=== PATIENT | male | born 1940 | race American Indian/Alaskan Native ===

== ENCOUNTER 2021-10-01 19:38 | Inpatient (IN) | payer OTHER, MEDICARE ==
[2021-10-01] MEDS ORDERED: SODIUM CHLORIDE 0.9% 500 ML 500 ML IV ONE (20:06)
--- NOTE | 2021-10-01 20:11 | Emergency Department Report ---
HPI - General Time Seen by Provider: 10/01/21 19:59 - HPI HPI: This is an 80-year-old -[place] male presents to the emergency department via EMS from [facility] with a complaint of shortness of breath and altered mental status. The patient has a history of nonischemic cardiomyopathy, dementia, BPH. He just was admitted to [facility] after discharge from another hospital. We do have the paperwork from this other hospital that shows he was recently admitted for syncopal episodes, elevated troponin level, small bowel obstruction, nonischemic cardiomyopathy. Apparently, just prior to presentation, staff at [facility] found him laying supine in bed and he appeared to be in some type of respiratory distress. EMS arrived and placed him on a nonrebreather, sat him upright, and he had some improvement. At the time of my examination the patient is nonverbal and is laying with his eyes closed but does respond to painful stimuli. ED Past Medical Hx - Past Medical History Hx Hypertension: Yes Hx Congestive Heart Failure: Yes Hx Arthritis: Yes Hx Dementia: Yes Hx HIV: No Additional medical history: PROSTRATE CANCER, dementia - Surgical History Additional Surgical History: colon resection. surgery for prostate cancer - Social History Smoking Status: Former Smoker - Medications Home Medications: Home Medications Medication Instructions Recorded Confirmed Last Taken Type Aspirin EC [Halfprin EC] 81 mg PO QDAY #30 tablet 11/07/20 Unknown Rx Furosemide [Lasix TAB] 40 mg PO QDAY #30 tablet 11/07/20 Unknown Rx Spironolactone [Aldactone] 25 mg PO QDAY #30 tablet 11/07/20 Unknown Rx carvediloL [Coreg] 6.25 mg PO BID #60 tablet 11/07/20 Unknown Rx lisinopriL [Zestril TAB] 5 mg PO DAILY #30 11/07/20 Unknown Rx Tamsulosin [Flomax] 0.4 mg PO QDAY #30 cap 11/08/20 Unknown Rx ED Review of Systems ROS: Stated complaint: AMS Other details as noted in HPI Comment: Unobtainable due to pts medical conditions Physical Exam - Physical Exam Physical Exam: GENERAL: The patient is well-developed well-nourished. HENT: Normocephalic. Atraumatic. Patient has moist mucous membranes. EYES: Pupils equal reactive to light bilaterally. NECK: Supple. Trachea is midline. CHEST/LUNGS: Coarse breath sounds bilateral. There is some tachypnea. HEART/CARDIOVASCULAR: Regular. There is no tachycardia. There is no murmur. ABDOMEN: Abdomen is soft, nontender. Patient has normal bowel sounds. SKIN: Skin is warm and dry. NEURO: The patient is very sleepy but is arousable. Nonverbal. Not following commands. MUSCULOSKELETAL: There is no tenderness or deformity. - Central Line Placement Right Femoral Consent Obtained: emergent situation Time Out Performed: Yes Patient Placed on Monitor/Pulse Ox: Yes MD Prep: mask, gown, gloves Central Line Prep: Chlorhexidine scrub Local Anesthesia Used: Lidocaine 1% Amount of Anesthesia Used (mls): 3 Ultrasound Used for Placement: Yes Central Line Lumen Inserted: triple Reason for Insertion: Volume Resuscitation Bloods Obtained for Lab: No Central Line Position: good blood return, all ports aspirated, flus, sutured in place with nyl Dressing Applied: Tegaderm, sterile gauze/tape Patient Tolerated Procedure: well Complications: none ED Medical Decision Making - Lab Data Result diagrams: 10/01/21 20:16 10/01/21 20:16 Lab Results 10/01/21 10/01/21 10/01/21 Range/Units 20:16 20:16 20:16 WBC 3.6 L (4.5-11.0) K/mm3 RBC 3.43 L (3.65-5.03) M/mm3 Hgb 9.8 L (11.8-15.2) gm/dl Hct 31.0 L (35.5-45.6) % MCV 91 (84-94) fl MCH 29 (28-32) pg MCHC 32 (32-34) % RDW 15.5 H (13.2-15.2) % Plt Count 238 (140-440) K/mm3 Lymph % (Auto) 8.2 L (13.4-35.0) % [place] % (Auto) 6.7 (0.0-7.3) % Eos % (Auto) 1.0 (0.0-4.3) % Baso % (Auto) 0.3 (0.0-1.8) % Lymph # (Auto) 0.3 L (1.2-5.4) K/mm3 [place] # (Auto) 0.2 (0.0-0.8) K/mm3 Eos # (Auto) 0.0 (0.0-0.4) K/mm3 Baso # (Auto) 0.0 (0.0-0.1) K/mm3 Seg Neutrophils % 83.8 H (40.0-70.0) % Seg Neutrophils # 3.0 (1.8-7.7) K/mm3 PT 15.0 H (12.2-14.9) Sec. INR 1.06 (0.87-1.13) Sodium (137-145) mmol/L Potassium (3.6-5.0) mmol/L Chloride (98-107) mmol/L Carbon Dioxide (22-30) mmol/L Anion Gap mmol/L BUN (9-20) mg/dL Creatinine (0.8-1.3) mg/dL Estimated GFR ml/min BUN/Creatinine Ratio % Glucose (75-100) mg/dL Lactic Acid 1.40 (0.7-2.0) mmol/L Calcium (8.4-10.2) mg/dL Total Bilirubin (0.1-1.2) mg/dL AST (5-40) units/L ALT (7-56) units/L Alkaline Phosphatase (35-129) units/L Ammonia (25-60) umol/L Troponin T (0.00-0.029) ng/mL NT-Pro-B Natriuret Pep (0-900) pg/mL Total Protein (6.3-8.2) g/dL Albumin (3.9-5) g/dL Albumin/Globulin Ratio % Triglycerides (2-149) mg/dL Cholesterol (50-199) mg/dL LDL Cholesterol Direct (50-130) mg/dL HDL Cholesterol (40-59) mg/dL Cholesterol/HDL Ratio % TSH (0.270-4.200) mlU/mL Plasma/Serum Alcohol (0-0.07) % 10/01/21 10/01/21 10/01/21 Range/Units 20:16 20:16 20:16 WBC (4.5-11.0) K/mm3 RBC (3.65-5.03) M/mm3 Hgb (11.8-15.2) gm/dl Hct (35.5-45.6) % MCV (84-94) fl MCH (28-32) pg MCHC (32-34) % RDW (13.2-15.2) % Plt Count (140-440) K/mm3 Lymph % (Auto) (13.4-35.0) % [place] % (Auto) (0.0-7.3) % Eos % (Auto) (0.0-4.3) % Baso % (Auto) (0.0-1.8) % Lymph # (Auto) (1.2-5.4) K/mm3 [place] # (Auto) (0.0-0.8) K/mm3 Eos # (Auto) (0.0-0.4) K/mm3 Baso # (Auto) (0.0-0.1) K/mm3 Seg Neutrophils % (40.0-70.0) % Seg Neutrophils # (1.8-7.7) K/mm3 PT (12.2-14.9) Sec. INR (0.87-1.13) Sodium 145 (137-145) mmol/L Potassium 4.3 (3.6-5.0) mmol/L Chloride 109.8 H (98-107) mmol/L Carbon Dioxide 26 (22-30) mmol/L Anion Gap 14 mmol/L BUN 24 H (9-20) mg/dL Creatinine 0.8 (0.8-1.3) mg/dL Estimated GFR > 60 ml/min BUN/Creatinine Ratio 30 % Glucose 123 H (75-100) mg/dL Lactic Acid (0.7-2.0) mmol/L Calcium 8.6 (8.4-10.2) mg/dL Total Bilirubin 0.50 (0.1-1.2) mg/dL AST 48 H (5-40) units/L ALT 74 H (7-56) units/L Alkaline Phosphatase 167 H (35-129) units/L Ammonia 28.0 (25-60) umol/L Troponin T 0.049 H (0.00-0.029) ng/mL NT-Pro-B Natriuret Pep (0-900) pg/mL Total Protein 6.1 L (6.3-8.2) g/dL Albumin 2.5 L (3.9-5) g/dL Albumin/Globulin Ratio 0.7 % Triglycerides 49 (2-149) mg/dL Cholesterol 91 (50-199) mg/dL LDL Cholesterol Direct 40 L (50-130) mg/dL HDL Cholesterol 37 L (40-59) mg/dL Cholesterol/HDL Ratio 2.45 % TSH 3.780 (0.270-4.200) mlU/mL Plasma/Serum Alcohol (0-0.07) % 10/01/21 10/01/21 Range/Units 20:16 21:03 WBC (4.5-11.0) K/mm3 RBC (3.65-5.03) M/mm3 Hgb (11.8-15.2) gm/dl Hct (35.5-45.6) % MCV (84-94) fl MCH (28-32) pg MCHC (32-34) % RDW (13.2-15.2) % Plt Count (140-440) K/mm3 Lymph % (Auto) (13.4-35.0) % [place] % (Auto) (0.0-7.3) % Eos % (Auto) (0.0-4.3) % Baso % (Auto) (0.0-1.8) % Lymph # (Auto) (1.2-5.4) K/mm3 [place] # (Auto) (0.0-0.8) K/mm3 Eos # (Auto) (0.0-0.4) K/mm3 Baso # (Auto) (0.0-0.1) K/mm3 Seg Neutrophils % (40.0-70.0) % Seg Neutrophils # (1.8-7.7) K/mm3 PT (12.2-14.9) Sec. INR (0.87-1.13) Sodium (137-145) mmol/L Potassium (3.6-5.0) mmol/L Chloride (98-107) mmol/L Carbon Dioxide (22-30) mmol/L Anion Gap mmol/L BUN (9-20) mg/dL Creatinine (0.8-1.3) mg/dL Estimated GFR ml/min BUN/Creatinine Ratio % Glucose (75-100) mg/dL Lactic Acid (0.7-2.0) mmol/L Calcium (8.4-10.2) mg/dL Total Bilirubin (0.1-1.2) mg/dL AST (5-40) units/L ALT (7-56) units/L Alkaline Phosphatase (35-129) units/L Ammonia (25-60) umol/L Troponin T (0.00-0.029) ng/mL NT-Pro-B Natriuret Pep 3878 H (0-900) pg/mL Total Protein (6.3-8.2) g/dL Albumin (3.9-5) g/dL Albumin/Globulin Ratio % Triglycerides (2-149) mg/dL Cholesterol (50-199) mg/dL LDL Cholesterol Direct (50-130) mg/dL HDL Cholesterol (40-59) mg/dL Cholesterol/HDL Ratio % TSH (0.270-4.200) mlU/mL Plasma/Serum Alcohol < 0.01 (0-0.07) % - EKG Data 10/02/21 01:07 The EKG done at 0059 shows too much artifact. It says that the patient has atrial fibrillation but this does not appear consistent with what is seen on the cardiac monitoring. However it does appear to be enough to show that the patient does not have morphology consistent with ST elevation myocardial infarction. - Radiology Data Radiology results: report reviewed CHEST 1 VIEW 10/01/2021 8:10 PM INDICATION / CLINICAL INFORMATION: Altered mental status. COMPARISON: 11/05/2020 FINDINGS: SUPPORT DEVICES: None. HEART / MEDIASTINUM: No significant abnormality. LUNGS / PLEURA: Right costophrenic angles are not completely included. Diffuse opacity in the right hilum and right mid and lower lung. No pneumothorax. ADDITIONAL FINDINGS: No significant additional findings. IMPRESSION: 1. Diffuse right pulmonary opacity. Limited examination of the costophrenic angle. Right effusion CT head/brain wo con INDICATION / CLINICAL INFORMATION: 80 years Male; Altered mental status. TECHNIQUE: Routine CT head without contrast. All CT scans at this location are performed using CT dose reduction for ALARA by means of automated exposure control. COMPARISON: None. FINDINGS: BRAIN / INTRACRANIAL CONTENTS: No acute hemorrhage, mass effect, midline shift, hydrocephalus, or acute, large territorial infarct. Mild to moderate, diffuse cerebral atrophy. Moderate to marked degree of hippocampal atrophy suggested bilaterally. There are moderate, somewhat confluent areas of decreased attenuation in the white matter of the cerebral hemispheres, as well as the gangliocapsular regions. These are nonspecific findings and may be related to microangiopathy (hypertension, diabetes, atherosclerosis), given the patient's age. It might be difficult to evaluate for small areas of ischemia without diffusion imaging by MRI. Mild pontine disease suspected. CRANIOCERVICAL JUNCTION: No significant abnormality. ORBITS: No significant abnormality of visualized orbits. SINUSES / MASTOIDS: Small mucous retention cysts seen in both maxillary antra. ADDITIONAL FINDINGS: No significant atherosclerotic disease appreciated. IMPRESSION: 1. No focal m ass, hemorrhage, hydrocephalus, or acute, large territorial infarct. - Medical Decision Making This patient presents to the emergency department from [facility] after he was admitted there yesterday and appeared to be acutely declining and having some signs of respiratory distress. On examination the patient has some tachypnea, coarse breath sounds and was placed on a nonrebreather. He has a history of dementia but initially the patient is somewhat somnolent. He is arousable but remains nonverbal and not following commands. Throughout his ED course he has become more awake, but continues to be confused and nonverbal. We have been able to titrate down the supplemental oxygen from a nonrebreather to a Venturi mask and now to 4 L oxygen via nasal cannula. Chest x-ray shows right-sided opacities concerning for pneumonia versus volume overload. CT of the head without contrast does not show any hemorrhage, large vessel occlusion, or any other acute process. Overall patient appears consistent with CHF as there is a right-sided effusion, elevated proBNP of greater than 3000 without renal insufficiency. However, given the patient's blood pressure, I have been unable to give him Lasix to start diuresis. The patient has been started on some empiric antibiotics as the right-sided opacity could also represent pneumonia. Patient's labs shows some anemia with hemoglobin of 9.8, mild transaminitis, mild elevation in the troponin level, and BNP of 3800. The patient began having hypotension and was seen with a systolic of about 60. He already received 500 cc of IV fluid, and I do not want to give him any more fluid if I do not have to as he is exhibiting signs of volume overload. Therefore, a central venous catheter was placed as per the procedure section and the patient was started on Levophed. He will be admitted to the ICU and was accepted for admission by the hospitalist, Dr. Sterling. Critical Care Time: Yes Critical care time in (mins) excluding proc time.: 35 Critical care attestation.: If time is entered above; I have spent that time in minutes in the direct care of this critically ill patient, excluding procedure time. Critical care time spent on this patient in doing his initial evaluation, multiple reevaluations, ordering and interpretation of labs and imaging, IV antibiotics, management of pressors for hypotension, discussion with the hospitalist service. This does not include the separately billable procedure of central venous catheter placement. Critical Care Time: 35 minutes ED Disposition Clinical Impression: Respiratory distress, Elevated troponin CHF exacerbation Qualifiers: Heart failure type: unspecified Qualified Code(s): I50.9 - Heart failure, unspecified Hypotension Qualifiers: Hypotension type: unspecified hypotension type Qualified Code(s): I95.9 - Hypotension, unspecified Disposition: 09 ADMITTED INPATIENT Is pt being admited?: Yes Condition: Serious Time of Disposition: 01:14
--- NOTE | 2021-10-01 20:35 | XRay Report ---
CHEST 1 VIEW 10/01/2021 8:10 PM INDICATION / CLINICAL INFORMATION: Altered mental status. COMPARISON: 11/05/2020 FINDINGS: SUPPORT DEVICES: None. HEART / MEDIASTINUM: No significant abnormality. LUNGS / PLEURA: Right costophrenic angles are not completely included. Diffuse opacity in the right h ilum and right mid and lower lung. No pneumothorax. ADDITIONAL FINDINGS: No significant additional findings. IMPRESSION: 1. Diffuse right pulmonary opacity. Limited examination of the costophrenic angle. Right effusion Signer Name: Aris Angel MD Signed: 10/01/2021 8:31 PM Workstation Name: [id number]
[2021-10-01 20:44] LABS: Basophils % (Auto) 0.3 % (0.0-1.8); Hemoglobin 9.8 gm/dl (11.8-15.2); Lymphocytes # (Auto) 0.3 K/mm3 (1.2-5.4); Lymphocytes % (Auto) 8.2 % (13.4-35.0); Mean Corpuscular HGB Conc 32 % (32-34); Mean Corpuscular Volume 91 fl (84-94); Monocytes # (Auto) 0.2 K/mm3 (0.0-0.8); Monocytes % (Auto) 6.7 % (0.0-7.3); Platelet Count 238 K/mm3 (140-440); Red Blood Count 3.43 M/mm3 (3.65-5.03); Red Cell Distribution Width 15.5 % (13.2-15.2)
[2021-10-01 20:53] LABS: INR 1.06 (0.87-1.13)
--- NOTE | 2021-10-01 20:56 | Cat Scan Report ---
CT head/brain wo con INDICATION / CLINICAL INFORMATION: 80 years Male; Altered mental status. TECHNIQUE: Routine CT head without contrast. All CT scans at this location are performed using CT dos e reduction for ALARA by means of automated exposure control. COMPARISON: None. FINDINGS: BRAIN / INTRACRANIAL CONTENTS: No acute hemorrhage, mass effect, midline shift, hydrocephalus, or acu te, large territorial infarct. Mild to moderate, diffuse cerebral atrophy. Moderate to marked degree of hippocampal atrophy suggeste d bilaterally. There are moderate, somewhat confluent areas of decreased attenuation in the white matter of the cere bral hemispheres, as well as the gangliocapsular regions. These are nonspecific findings and may be r elated to microangiopathy (hypertension, diabetes, atherosclerosis), given the patient's age. It migh t be difficult to evaluate for small areas of ischemia without diffusion imaging by MRI. Mild pontine disease suspected. CRANIOCERVICAL JUNCTION: No significant abnormality. ORBITS: No significant abnormality of visualized orbits. SINUSES / MASTOIDS: Small mucous retention cysts seen in both maxillary antra. ADDITIONAL FINDINGS: No significant atherosclerotic disease appreciated. IMPRESSION: 1. No focal mass, hemorrhage, hydrocephalus, or acute, large territorial infarct. Signer Name: Dakota Keys MD, III Signed: 10/01/2021 8:52 PM Workstation Name: [id number]
[2021-10-01 21:06] LABS: Alanine Aminotransferase 74 units/L (7-56); Albumin 2.5 g/dL (3.9-5); BUN/Creatinine Ratio 30; Blood Urea Nitrogen 24 mg/dL (9-20); Calcium 8.6 mg/dL (8.4-10.2); Hemolysis Index 11
[2021-10-01 21:38] LABS: Chol/HDL Ratio 2.45 %; HDL Cholesterol 37 mg/dL (40-59); LDL Cholesterol,Direct 40 mg/dL (50-130)
[2021-10-01] MEDS ORDERED: cefTRIAXone/NS 1 GM/50 ML 1 GM/50 ML BAG IV ONE (23:18)
[2021-10-01] MEDS ORDERED: AZITHROMYCIN/NS 500 MG/250 ML 500 MG/250 ML BAG IV ONE (23:18)
[2021-10-01] MEDS ORDERED: LORazepam 2 MG/ML VIAL IV ONE (23:20)
[2021-10-02] MEDS ORDERED: ONDANSETRON 4 MG/2 ML INJ IV PRN (00:35)
[2021-10-02] MEDS ORDERED: ACETAMINOPHEN 325 MG TAB PO PRN (00:35)
[2021-10-02] MEDS ORDERED: MAGNESIUM HYDROXIDE (MOM) ORAL LIQD UDC PO PRN (00:35)
[2021-10-02] MEDS ORDERED: MORPHINE 2 MG/1 ML INJ IV PRN (00:35)
[2021-10-02] MEDS ORDERED: MORPHINE 4 MG/1 ML INJ IV PRN (00:35)
--- NOTE | 2021-10-02 00:49 | History and Physical Report ---
History of Present Illness Date of examination: 10/02/21 Date of admission: 10/02/2021 Chief complaint: Shortness of Breath History of present illness: 80-year-old -[place] male with known history of congestive heart failure, hypertension and dementia brought into the emergency room via EMS [facility] for evaluation of shortness of breath and changes in mental status. According to son who was by the bedside patient had just been discharged from [facility] . Paperwork shows that he was recently admitted for syncopal episode, elevated troponin, small bowel obstruction, nonischemic cardiomyopathy. Patient arrived in the emergency room on nonrebreather and was subsequently placed on BiPAP upon arrival in the emergency room. Work-up in the emergency room today, chest x-ray shows diffuse right pulmonary opacity. CT of the head shows no acute abnormality. Lab is significant for hemoglobin of 9.8 and hematocrit of 31, D-dimer of 1236. BNP of 3878 During the course of patient's stay in the emergency room patient became hypotensive and was subsequently placed on a pressor. Patient commenced on empiric IV antibiotics for pneumonia. Past History Past Medical History: arthritis, heart failure, hypertension, other (Dementia, prostate cancer) Past Surgical History: Other (Colon resection, prostate surgery) Social history: smoking (Former smoker) Family history: no significant family history Medications and Allergies Allergies Allergy/AdvReac Type Severity Reaction Status Date / Time No Known Allergies Allergy Verified 11/02/20 17:56 Home Medications Medication Instructions Recorded Confirmed Last Taken Type Aspirin EC [Halfprin EC] 81 mg PO QDAY #30 tablet 11/07/20 Unknown Rx Furosemide [Lasix TAB] 40 mg PO QDAY #30 tablet 11/07/20 Unknown Rx Spironolactone [Aldactone] 25 mg PO QDAY #30 tablet 11/07/20 Unknown Rx carvediloL [Coreg] 6.25 mg PO BID #60 tablet 11/07/20 Unknown Rx lisinopriL [Zestril TAB] 5 mg PO DAILY #30 11/07/20 Unknown Rx Tamsulosin [Flomax] 0.4 mg PO QDAY #30 cap 11/08/20 Unknown Rx Active Meds: Active Medications Acetaminophen (Acetaminophen 325 Mg Tab) 650 mg PO Q6H PRN PRN Reason: Pain MILD(1-3)/Fever >100.5/ECHEVERRIA NORepinephrine/NS 8 MG-250 ML (Norepinephrine/Ns 8 Mg-250 Ml (Double Conc)) 8 mg in 250 mls @ 3.75 mls/hr IV TITRATE IVETT; Protocol Morphine Sulfate (Morphine 2 Mg/1 Ml Inj) 2 mg IV Q4H PRN PRN Reason: Pain, Moderate (4-6) Morphine Sulfate (Morphine 4 Mg/1 Ml Inj) 4 mg IV Q4H PRN PRN Reason: Pain , Severe (7-10) Sodium Chloride (Sodium Chloride 0.9% 10 Ml Flush Syringe) 10 ml IV BID IVETT Sodium Chloride (Sodium Chloride 0.9% 10 Ml Flush Syringe) 10 ml IV PRN PRN PRN Reason: LINE FLUSH Review of Systems Constitutional: no fever, no chills, no malaise Ears, nose, mouth and throat: no nasal congestion, no sore throat Cardiovascular: no chest pain, no palpitations Respiratory: cough, shortness of breath Gastrointestinal: no abdominal pain, no nausea, no vomiting Genitourinary Male: no dysuria, no hematuria Musculoskeletal: no neck pain, no low back pain Integumentary: no rash, no pruritis Neurological: no headaches, no confusion Psychiatric: no anxiety, no depression Endocrine: no polyphagia, no polydipsia, no polyuria, no nocturia Exam - Constitutional Vitals: Temp Pulse Resp BP Pulse Ox 97.9 F 74 11 L 106/53 99 10/01/21 23:15 10/01/21 23:15 10/01/21 23:15 10/01/21 23:15 10/01/21 23:15 General appearance: Present: mild distress, well-nourished, other (Moderate Pallor) - EENT Eyes: Present: PERRL, EOM intact. Absent: scleral icterus ENT: hearing intact, clear oral mucosa, dentition normal - Neck Neck: Present: supple, normal ROM - Respiratory Respiratory effort: normal Respiratory: bilateral: diminished - Cardiovascular Rhythm: regular Heart Sounds: Present: S1 & S2. Absent: gallop, systolic murmur, diastolic murmur, rub, click - Extremities Extremities: no ischemia, pulses intact, pulses symmetrical, No edema, normal temperature, normal color, Full ROM Peripheral Pulses: within normal limits - Abdominal General gastrointestinal: Present: soft, non-tender, non-distended, normal bowel sounds. Absent: mass - Integumentary Integumentary: Present: clear, warm, dry. Absent: rash - Musculoskeletal Musculoskeletal: strength equal bilaterally - Psychiatric Psychiatric: appropriate mood/affect, intact judgment & insight, no memory intact, cooperative - Neurologic Neurologic: CNII-XII intact, no focal deficits, moves all extremities HEART Score - HEART Score Troponin: Troponin T 0.049 ng/mL (0.00-0.029) H 10/01/21 20:16 Results - Labs CBC & Chem 7: 10/01/21 20:16 10/01/21 20:16 Labs: Abnormal lab results 10/01/21 10/01/21 10/01/21 Range/Units 20:16 20:16 20:16 WBC 3.6 L (4.5-11.0) K/mm3 RBC 3.43 L (3.65-5.03) M/mm3 Hgb 9.8 L (11.8-15.2) gm/dl Hct 31.0 L (35.5-45.6) % RDW 15.5 H (13.2-15.2) % Lymph % (Auto) 8.2 L (13.4-35.0) % Lymph # (Auto) 0.3 L (1.2-5.4) K/mm3 Seg Neutrophils % 83.8 H (40.0-70.0) % PT 15.0 H (12.2-14.9) Sec. Chloride 109.8 H (98-107) mmol/L BUN 24 H (9-20) mg/dL Glucose 123 H (75-100) mg/dL AST 48 H (5-40) units/L ALT 74 H (7-56) units/L Alkaline Phosphatase 167 H (35-129) units/L Troponin T 0.049 H (0.00-0.029) ng/mL NT-Pro-B Natriuret Pep (0-900) pg/mL Total Protein 6.1 L (6.3-8.2) g/dL Albumin 2.5 L (3.9-5) g/dL LDL Cholesterol Direct 40 L (50-130) mg/dL HDL Cholesterol 37 L (40-59) mg/dL 10/01/21 Range/Units 21:03 WBC (4.5-11.0) K/mm3 RBC (3.65-5.03) M/mm3 Hgb (11.8-15.2) gm/dl Hct (35.5-45.6) % RDW (13.2-15.2) % Lymph % (Auto) (13.4-35.0) % Lymph # (Auto) (1.2-5.4) K/mm3 Seg Neutrophils % (40.0-70.0) % PT (12.2-14.9) Sec. Chloride (98-107) mmol/L BUN (9-20) mg/dL Glucose (75-100) mg/dL AST (5-40) units/L ALT (7-56) units/L Alkaline Phosphatase (35-129) units/L Troponin T (0.00-0.029) ng/mL NT-Pro-B Natriuret Pep 3878 H (0-900) pg/mL Total Protein (6.3-8.2) g/dL Albumin (3.9-5) g/dL LDL Cholesterol Direct (50-130) mg/dL HDL Cholesterol (40-59) mg/dL Assessment and Plan - Patient Problems (1) Acute encephalopathy Current Visit: No Status: Acute Plan to address problem: Possibly secondary to underlying infection. We will monitor mental status. (2) Acute respiratory failure with hypoxia Current Visit: No Status: Acute Plan to address problem: Possibly secondary to underlying pneumonia. Continue empiric IV antibiotics. (3) DVT prophylaxis Current Visit: No Status: Acute Plan to address problem: Patient placed on subcutaneous heparin. (4) Full code status Current Visit: No Status: Acute Plan to address problem: Patient is full code
[2021-10-02] MEDS ORDERED: VANCOMYCIN 1,250 MG in SODIUM CHLORIDE 0.9% 250ML 250 ML IV ONE (01:00)
[2021-10-02] MEDS ORDERED: CEFEPIME/NS 2 GM/100 ML 2 GM/100 ML BAG IV SCH ×2 (01:00)
[2021-10-02] MEDS ORDERED: VANCOMYCIN PHARMACY TO DOSE IV SCH (01:00)
[2021-10-02] MEDS ORDERED: NORepinephrine/NS 8 MG-250 ML 8 MG/250 ML INFUS..BTL IV SCH ×2 (01:00→06:00)
[2021-10-02 02:07] VITALS: BP 82/48
[2021-10-02] MEDS ORDERED: ROCURONIUM 50 MG/5 ML INJ IV ONE ×2 (05:20→05:31)
[2021-10-02] MEDS ORDERED: KETAMINE 500 MG/5 ML VIAL MDV ONE (05:20)
[2021-10-02] MEDS ORDERED: KETAMINE 500 MG/5 ML VIAL MDV IV ONE (05:31)
--- NOTE | 2021-10-02 05:34 | Procedure Note ---
Date of procedure: 10/02/21 Pre-op diagnosis: Acute respiratory failure Post-op diagnosis: same Procedure: Emergency room responded to 80-year-old gentleman in room 20, with in-hospital cardiac arrest. Patient received standard ACLS interventions. Patient is intubated with a curved Akbar 4 blade, and 7.5 endotracheal tube. Patient has post intubation breath sounds, and appropriate capnography color change. Total pulseless downtime approximately 4 minutes. Defer to inpatient team to manage patient's post resuscitation. Hospital physician, Dr. Vale Sterling present during resuscitation and aware Anesthesia: other (Ketamine, 200 mg. Rocuronium, 50 mg.) Surgeon: PARAMJIT SMILEY Rn Dermatology: LAURI KEY Estimated blood loss: none Condition: critical Disposition: ICU
--- NOTE | 2021-10-02 05:55 | XRay Report ---
CHEST 1 VIEW INDICATION: s/p ett placement. COMPARISON: One day prior. FINDINGS: Support devices: Endotracheal tube has been placed in satisfactory position with tip 4 cm above the c jian. Heart: Stable. Lungs/Pleura: Right lung opacities have significantly worsened and there is associated volume loss in the right hemithorax. Left lung remains clear. There is no pneumothorax. IMPRESSION: 1. Endotracheal tube in satisfactory position. 2. New right upper lung airspace disease consistent with significant atelectasis/collapse. Signer Name: Del Garay MD Signed: 10/02/2021 5:51 AM Workstation Name: [id number]
--- NOTE | 2021-10-02 06:13 | Event Note ---
Date: 10/02/21 GA MOUNIKA called on 80-year-old male who has been admitted earlier for respiratory failure with hypoxia. Resuscitative measures were commenced by the ER physician prior to my arrival. Patient already intubated. Patient was coded according to ACLS protocol including multiple rounds of epi, sodium bicarb and calcium gluconate. All resuscitative measures proved futile. Patient pronounced at 06:05 AM on October 02, 2021. Next of kin to be immediately notified.
[2021-10-02] MEDS ORDERED: ATROPINE 0.1% (1 MG/10 ML) CARDIAC SYRINGE ONE (09:05)
[2021-10-02] MEDS ORDERED: SODIUM BICARB 8.4% 50 MEQ/50 ML SYRINGE IV ONE (09:05)
[2021-10-02] MEDS ORDERED: CALCIUM CHLORIDE 1,000 MG/10 ML SYRINGE IV ONE (09:05)
[2021-10-02] MEDS ORDERED: EPINEPHrine 1 MG/10 ML SYRINGE ONE (09:05)
[2021-10-02 10:01] LABS: C-Reactive Protein 2.3 mg/dL (0.00-1.30)
--- NOTE | 2021-10-02 13:29 | Electrocardiograph Report ---
[facility] Test Date: 2021-10-02 Test Time: 00:59:34 Pat Name: SHIN SCHERER Department: Room: [place] [address] Gender: M [employer]age [employer]sembl[employer]: NURSE : 1940 Requested By: JESÚS VOGT Order Number: [id number] Reading MD: Sobeida Mata Measurements Intervals Phyllis Rate: 114 P: KS: QRS: -52 QRSD: 115 T: 178 QT: 317 QTc: 436 Interpretive Statements Very poor quality EKG with extensive baseline artifact Probably normal sinus rhythm with heart rate 77 Compared to ECG 11/02/2020 18:06:02 No significant change Electronically Signed On 10-02-2021 13:28:54 EST by Sobeida Mata
[2021-10-02] MEDS ORDERED: HEPARIN 5,000 UNIT/1 ML VIAL SUB-Q SCH (14:00)
[2021-10-03] MEDS ORDERED: VANCOMYCIN/NS 1 GM/250 ML 1 GM/250 ML BAG IV SCH (01:00)
== END 2021-10-02 08:30 | DRG 208 ==
LOC: ED 19:38 → CC1 10-02 00:37
PROVIDERS: ADMIT Internal Medicine Geriatric Medicine; ATTEND Internal Medicine Geriatric Medicine
PROC: 5A1935Z Respiratory Ventilation, Less than 24 Consecutive Hours (ICD-10-PCS; principal; 2021-10-02)
PROC: 0BH17EZ Insertion of Endotracheal Airway into Trachea, Via Natural or Artificial Opening (ICD-10-PCS; 2021-10-02)
PROC: 06HM33Z Insertion of Infusion Device into Right Femoral Vein, Percutaneous Approach (ICD-10-PCS; 2021-10-02)
PROC: B54BZZA Ultrasonography of Right Lower Extremity Veins, Guidance (ICD-10-PCS; 2021-10-02)
DX: J96.01 Acute respiratory failure with hypoxia (principal); G93.40 Encephalopathy, unspecified; I50.9 Heart failure, unspecified; M19.90 Unspecified osteoarthritis, unspecified site; F03.90 Unspecified dementia, unspecified severity, without behavioral disturbance, psychotic disturbance, mood disturbance, and anxiety; I11.0 Hypertensive heart disease with heart failure; Z87.891 Personal history of nicotine dependence
CPT/HCPCS: 36415; 70450; 71045; 80053; 80061; 80320; 82140; 83615; 83880; 84443; 84484; 85025; 85379; 85610; 86140; 87040; 93005; 93010; 94002; G0378; J3490; G0480; J0171; J0456; J0461; J0692; J0696; J2270; J3370; J7040; J7050